=== PATIENT | female | born 1990 ===

== ENCOUNTER 2018-04-15 21:55 | Emergency (ER) | payer SELFPAY ==
[~2018-04-15] VITALS: Ht 157.5 cm; Wt 68.7 kg
[2018-04-15 22:02] VITALS: BP 159/95; PULSE 89; RESP 20; Ht 157.5 cm; Wt 68.7 kg
== END 2018-04-16 01:30 | disposition left against medical advice (07) ==
LOC: FTE 21:55
DX: Z53.21 Procedure and treatment not carried out due to patient leaving prior to being seen by health care provider (principal)